=== PATIENT | male | born 1995 | race Hispanic/Latino ===

== ENCOUNTER 2018-12-05 19:10 | Day surgery (SDC) | payer SELFPAY ==
[~2018-12-05 19:10] MED LIST: Dexamethasone 20 MG/5 ML VIAL ONE; Ketorolac Tromethamine 30 MG/ML VIAL ONE; Lidocaine 1% PF 5 ML VIAL ONE; Ondansetron PF 4 MG/2 ML Vial ONE; PHENYLEPHRINE-NS 100 MCG/ML 10 ML SYRINGE ONE; PROPOFOL 200 MG/20 ML VIAL ONE
[2018-12-05] MEDS ORDERED: Fentanyl 100 MCG/2 ML VIAL ONE ×3 (19:14→23:43)
[2018-12-05] MEDS ORDERED: CEFAZOLIN 1 GM VIAL ONE (19:21)
--- NOTE | 2018-12-05 19:49 | RAD ---
PORTABLE CHEST ONE VIEW: 12/05/18 at 7:22 p.m. HISTORY: Trauma. FINDINGS: The heart size is normal. The lungs are expanded without focal areas of consolidation, pneumothoraces , or pleural effusions. IMPRESSION: No acute process. POS: [facility]
[2018-12-05 19:54] LABS: #Basophils 0.1 thou/uL (0.0-0.2); #Eosinphils 0.1 thou/uL (0.0-0.7); #Lymphocytes 3.4 thou/uL (1.20-3.40); #Monocytes 0.7 thou/uL (0.11-0.59); #Neutrophils 7.5 thou/uL (1.40-6.50); %Basophils 0.8 % (0.0-1.0); %Eosinophils 1.2 % (0.0-10.0); %Lymphocytes 28.7 % (21.0-51.0); %Monocytes 6.2 % (0.0-10.0); %Neutrophils 63.1 % (42.0-75.0); Hemoglobin 13.2 g/dL (14.0-18.0); Mean Corpuscular HGB CONC 34.4 g/dL (32.0-36.0); Mean Corpuscular Hemoglobin 31.5 pg (27.0-31.0); Mean Corpuscular Volume 91.4 fL (78.0-98.0); Mean Platelet Volume 8.1 fL (7.4-10.4); Platelet Count 213 thou/uL (130-400); RBC Distribution Width 11.7 % (11.5-14.5); Red Blood Cell (RBC) Count 4.19 mill/uL (4.70-6.10); White Blood Cell (WBC) Count 11.9 thou/uL (4.8-10.8)
[2018-12-05 20:02] LABS: PTT 25.1 SEC (22.9-36.1); Prothrombin Time 13.7 SEC (12.0-14.7)
[2018-12-05 20:16] LABS: ALT (SGPT) 29 U/L (8-55); AST (SGOT) 24 U/L (5-34); Albumin 4.3 g/dL (3.5-5.0); Alkaline Phosphatase 74 U/L (40-150); Anion Gap 14 mmol/L (10-20); BUN (Urea Nitrogen) 16 mg/dL (8.9-20.6); Bilirubin, Total 0.4 mg/dL (0.2-1.2); Calc. Creatinine Clearance 0 mL/min (70-130); Calcium 9.2 mg/dL (7.8-10.44); Carbon Dioxide 21 mmol/L (22-29); Chloride 109 mmol/L (98-107); Estimated GFR-MDRD Greater than 90; Globulin 2.5 g/dL (2.4-3.5); Glucose 132 mg/dL (70-105); Potassium 3.4 mmol/L (3.5-5.1); Protein, Total 6.8 g/dL (6.0-8.3); Sodium 141 mmol/L (136-145)
--- NOTE | 2018-12-05 20:37 | RAD ---
RIGHT HAND THREE VIEWS: 12/05/18 HISTORY: Trauma, right hand pain. Patient cut hand with Skill saw. Bleeding not controlled prior to EMS arriva l. Controlled by tourniquet and dressing by EMS. FINDINGS/IMPRESSION: No acute fracture or dislocation is identified. No radiopaque foreign body is seen. POS: [facility]
[2018-12-05] MEDS ORDERED: Neomycin-Polymyxin 1 ML AMP ONE (22:13)
[2018-12-05] MEDS ORDERED: Bupivacaine HCl 0.5%/Epinephrine 1:200,000/PF 30 ml Vial ONE (23:40)
[2018-12-06] MEDS ORDERED: Promethazine HCl 25 MG/ML VIAL IM PRN (00:15)
[2018-12-06] MEDS ORDERED: PACU-Morphine 4MG/ML VIAL SLOW IVP PRN (00:15)
[2018-12-06] MEDS ORDERED: HYDROmorphone 2 MG/ML VIAL SLOW IVP PRN (00:15)
[2018-12-06] MEDS ORDERED: Ondansetron HCl/PF 4 MG/2 ML Vial IVP PRN (00:15)
[2018-12-06] MEDS ORDERED: Promethazine HCl 25 MG/ML VIAL SLOW IVP PRN (00:15)
--- NOTE | 2018-12-06 05:16 | OP ---
DATE OF PROCEDURE: 12/06/2018 PREOPERATIVE DIAGNOSIS: Laceration on the radial aspect of right hand with laceration to the first dorsal interosseous and adductor pollicis muscle. POSTOPERATIVE DIAGNOSIS: Laceration on the radial aspect of right hand with laceration to the first dorsal interosseous and adductor pollicis muscle. PROCEDURES: 1. Irrigation and debridement of the right hand. 2. Repair of the first dorsal interosseous and adductor pollicis muscle and complex repair of 13 cm laceration of right hand. ANESTHESIA: General. TECHNIQUE: The patient given preoperative IV antibiotics, taken to the operating room, placed in supine position, satisfactory general anesthesia was performed. The right hand and upper extremity were sterilely prepped and draped in usual fashion. The tourniquet was raised to 250 mmHg. The wound was copiously irrigated using antibiotic solution using the high-speed vending mechanic. The adductor pollicis muscle and the first dorsal interosseous muscle were lacerated through the tendon and a portion of the muscle and these were all repaired using 0 Vicryl with interrupted [id number] sutures. The fascia in the first web space was then closed using 2-0 Vicryl. The fat and subcu tissue were closed with 3-0 Vicryl and then the skin was closed using a 3-0 Rapide. There was also a flap laceration on the volar tip of the right index finger, which was closed using 3-0 Rapide. The wounds were then infiltrated with a total of 20 mL of 0.5% Marcaine with epinephrine. Sterile bulky dressing was applied. The patient was awakened, extubated, and transferred to recovery room in stable condition. ESTIMATED BLOOD LOSS: 100 mL. COMPLICATIONS: None. TOURNIQUET TIME: 17 minutes. DISCHARGE MEDICATION: 1. Augmentin 875 mg twice daily, #14. 2. Tylenol No. 4, one every 6 hours as needed for pain, #50. FOLLOWUP: Follow up in my office in 1 week. Job ID: [id number]
== END 2018-12-06 01:30 | disposition home or self-care (01) ==
LOC: ERS 19:10 → SDC/OP 23:24
PROVIDERS: ATTEND Orthopaedic Surgery
PROC: 0KQC0ZZ Repair Right Hand Muscle, Open Approach (ICD-10-PCS; principal; 2018-12-06)
DX: S66.421A Laceration of intrinsic muscle, fascia and tendon of right thumb at wrist and hand level, initial encounter (principal); S61.411A Laceration without foreign body of right hand, initial encounter; W31.2XXA Contact with powered woodworking and forming machines, initial encounter; Y93.H3 Activity, building and construction; Y99.0 Civilian activity done for income or pay
CPT/HCPCS: 36415; 71045; 80053; 83605; 85025; 85610; 85730; 86850; 86900; 86901; 93005; 96365; 96375; G0390; J0670; J0690; J1100; J1885; J2001; J2405; J2704; J3010